=== PATIENT | male | born 1955 | race Caucasian/White ===

== ENCOUNTER → 2019-07-22 | Outpatient (CLI) | payer OTHER, BC ==
--- NOTE | ~2019-07-22 | HC ---
[facility] [place] [address] CONSULTATION Name: KARMEN TRIPATHI [id number] Admission: 07/22/19 ������������������ Attend Phys: Tanner Reed MD Discharge: ������������������ Date of : 57 Report #: [id number] THIS REPORT FOR: //name// CC: Sergio Reed DATE OF SERVICE: 07/22/2019 OUTPATIENT FOLLOWUP CONSULTATION INFECTIOUS DISEASE HISTORY OF PRESENT ILLNESS: He was seen in the Wound in the Wound Care [facility]. 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 He remains on Zosyn now day 32. He denies any fever, chills or sweats. He has a wound VAC dressing program with moderate drainage. His colostomy is functioning well. His right upper extremity PICC is functioning well. He remains on his 3 drug immunosuppression for his renal transplantation. He has had no diarrhea. He remains on oral vancomycin prophylaxis due to his previous history of C. difficile colitis. PHYSICAL EXAMINATION: NEUROLOGIC: He was seen in the Wound Care Center.: He was alert and cooperative and pleasant, in no acute distress. Sacral wound had good granulation at the base. There was no exposed bone. There was no purulent drainage. There is no surrounding erythema. Right greater trochanteric wound with as of yet no good granulation tissue formation. He has no surrounding erythema. He is paraplegic. CHEST: Clear. HEART: Regular. SKIN: PICC site without erythema or drainage. Colostomy was functional. 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 We will plan on continuing his current IV antibiotic therapy and enteral vancomycin. He will be reevaluated in 2 weeks in the outpatient clinic. He will contact me if any further issues arise prior to his scheduled followup. Plan was discussed with wound care team and the patient's family. ��������������������������������������������� ���������������������������������������� By: ��������������������������������������������� [id number] Jevon Krause MD /nt
== END ==
LOC: HYPER 07-14 11:22
DX: L89.154 Pressure ulcer of sacral region, stage 4 (principal); L89.214 Pressure ulcer of right hip, stage 4; I12.9 Hypertensive chronic kidney disease with stage 1 through stage 4 chronic kidney disease, or unspecified chronic kidney disease; N18.3 Chronic kidney disease, stage 3 (moderate); D89.9 Disorder involving the immune mechanism, unspecified; G82.20 Paraplegia, unspecified; A49.8 Other bacterial infections of unspecified site; Z94.0 Kidney transplant status; Z86.19 Personal history of other infectious and parasitic diseases; Z93.3 Colostomy status

== ENCOUNTER → 2019-08-19 | Outpatient (CLI) | payer OTHER, BC ==
--- NOTE | 2019-09-09 19:00 | HC ---
[facility] [place] [address] CONSULTATION Name: KARMEN TRIPATHI [facility] [id number] Admission: 08/19/19 Attend Phys: Tanner Reed MD Discharge: Date of : 57 Report #: [id number] THIS REPORT FOR: //name// CC: Sergio Reed DATE OF SERVICE: 08/19/2019 HISTORY OF PRESENT ILLNESS: The patient was evaluated in the Wound Care Clinic at the request of Dr. Tanner Reed. 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 He remains on Zosyn without side effect. He is also on oral vancomycin for history of C. difficile colitis. He is on 3-drug immunosuppression for his renal transplantation. He has right upper extremity PICC, which is functioning well. He has had no onset of diarrhea. He has had no fever, chills or sweats. Overall, feels well. PHYSICAL EXAMINATION: GENERAL: His sacral wound is closing in nicely. Still has a fairly large right greater trochanter wound. No definite exposed bone evident. He was paraplegic. CHEST: Clear. HEART: Regular. ABDOMEN: Soft. SKIN: PICC site without erythema or drainage. Colostomy was functional. LABORATORY STUDIES: Pending. 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 He has exposed bone from his previous debridements. 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 He has shown evidence of improvement on his current treatment program. He remains on 3-drug immunosuppression. Plan will be to obtain laboratory studies if stable. RECOMMENDATIONS: We will then discontinue his IV antibiotic therapy and plan on enteral therapy with ciprofloxacin longer term. There is a potential interaction with his immunosuppression. We will have to notify renal transplant service regarding the addition of this drug. We will discuss further with the patient once prescription has been filled. Follow up in 2 weeks. <ELECTRONICALLY SIGNED> By: Jevon Krause MD 09/09/19 [id number] Jevon Krause MD /nt
== END ==
LOC: HYPER 10:00
DX: L89.154 Pressure ulcer of sacral region, stage 4 (principal); L89.214 Pressure ulcer of right hip, stage 4; D89.9 Disorder involving the immune mechanism, unspecified; I12.9 Hypertensive chronic kidney disease with stage 1 through stage 4 chronic kidney disease, or unspecified chronic kidney disease; N18.3 Chronic kidney disease, stage 3 (moderate); G82.20 Paraplegia, unspecified; Z86.19 Personal history of other infectious and parasitic diseases; Z94.0 Kidney transplant status; Z93.3 Colostomy status

== ENCOUNTER → 2019-09-14 | Outpatient (CLI) | payer OTHER, BC | LOC: HYPER 07:30 | DX: L89.154 Pressure ulcer of sacral region, stage 4 (principal); L89.214 Pressure ulcer of right hip, stage 4; D89.9 Disorder involving the immune mechanism, unspecified; N18.3 Chronic kidney disease, stage 3 (moderate); G82.20 Paraplegia, unspecified; A49.8 Other bacterial infections of unspecified site; Z94.0 Kidney transplant status; Z86.19 Personal history of other infectious and parasitic diseases; Z93.3 Colostomy status ==

== ENCOUNTER → 2019-10-21 | Outpatient (CLI) | payer OTHER, BC | LOC: HYPER 10:05 | DX: L89.154 Pressure ulcer of sacral region, stage 4 (principal); L89.214 Pressure ulcer of right hip, stage 4; G82.20 Paraplegia, unspecified; I12.9 Hypertensive chronic kidney disease with stage 1 through stage 4 chronic kidney disease, or unspecified chronic kidney disease; N18.3 Chronic kidney disease, stage 3 (moderate); A49.8 Other bacterial infections of unspecified site; D89.9 Disorder involving the immune mechanism, unspecified; Z94.0 Kidney transplant status; Z86.19 Personal history of other infectious and parasitic diseases; Z93.3 Colostomy status ==

== ENCOUNTER → 2019-11-18 | Outpatient (CLI) | payer OTHER, BC | LOC: HYPER 10:21 | DX: L89.154 Pressure ulcer of sacral region, stage 4 (principal); L89.214 Pressure ulcer of right hip, stage 4; B96.89 Other specified bacterial agents as the cause of diseases classified elsewhere; D89.9 Disorder involving the immune mechanism, unspecified; I12.9 Hypertensive chronic kidney disease with stage 1 through stage 4 chronic kidney disease, or unspecified chronic kidney disease; N18.3 Chronic kidney disease, stage 3 (moderate); G83.9 Paralytic syndrome, unspecified; Z94.0 Kidney transplant status; Z93.3 Colostomy status ==

== ENCOUNTER → 2019-12-16 | Outpatient (CLI) | payer OTHER, BC | LOC: HYPER 09:48 | DX: L89.154 Pressure ulcer of sacral region, stage 4 (principal); L89.214 Pressure ulcer of right hip, stage 4; G82.20 Paraplegia, unspecified; B96.89 Other specified bacterial agents as the cause of diseases classified elsewhere; D89.9 Disorder involving the immune mechanism, unspecified; N18.3 Chronic kidney disease, stage 3 (moderate); Z94.0 Kidney transplant status; Z86.19 Personal history of other infectious and parasitic diseases; Z93.3 Colostomy status ==

== ENCOUNTER → 2020-01-13 | Outpatient (CLI) | payer OTHER, BC | LOC: HYPER 09:58 | DX: L89.154 Pressure ulcer of sacral region, stage 4 (principal); L89.214 Pressure ulcer of right hip, stage 4; G82.20 Paraplegia, unspecified; B96.89 Other specified bacterial agents as the cause of diseases classified elsewhere; D89.9 Disorder involving the immune mechanism, unspecified; I12.9 Hypertensive chronic kidney disease with stage 1 through stage 4 chronic kidney disease, or unspecified chronic kidney disease; N18.3 Chronic kidney disease, stage 3 (moderate); Z94.0 Kidney transplant status; Z86.19 Personal history of other infectious and parasitic diseases; Z93.3 Colostomy status ==

== ENCOUNTER → 2020-02-24 | Outpatient (CLI) | payer OTHER, BC | LOC: HYPER 10:30 | DX: L89.154 Pressure ulcer of sacral region, stage 4 (principal); L89.214 Pressure ulcer of right hip, stage 4; L84 Corns and callosities; A49.8 Other bacterial infections of unspecified site; G82.20 Paraplegia, unspecified; D89.9 Disorder involving the immune mechanism, unspecified; I12.9 Hypertensive chronic kidney disease with stage 1 through stage 4 chronic kidney disease, or unspecified chronic kidney disease; N18.3 Chronic kidney disease, stage 3 (moderate); Z94.0 Kidney transplant status; Z86.19 Personal history of other infectious and parasitic diseases; Z93.3 Colostomy status ==

== ENCOUNTER → 2020-03-23 | Outpatient (CLI) | payer OTHER, BC | LOC: HYPER 09:09 | DX: L89.154 Pressure ulcer of sacral region, stage 4 (principal); L89.214 Pressure ulcer of right hip, stage 4; L84 Corns and callosities; G82.20 Paraplegia, unspecified; A49.8 Other bacterial infections of unspecified site; D89.9 Disorder involving the immune mechanism, unspecified; I12.9 Hypertensive chronic kidney disease with stage 1 through stage 4 chronic kidney disease, or unspecified chronic kidney disease; N18.3 Chronic kidney disease, stage 3 (moderate); Z94.0 Kidney transplant status; Z86.19 Personal history of other infectious and parasitic diseases; Z93.3 Colostomy status ==

== ENCOUNTER → 2020-04-12 | Outpatient (CLI) | payer OTHER, BC | LOC: HYPER 11:58 | DX: L89.154 Pressure ulcer of sacral region, stage 4 (principal); L89.214 Pressure ulcer of right hip, stage 4; G82.20 Paraplegia, unspecified; I12.9 Hypertensive chronic kidney disease with stage 1 through stage 4 chronic kidney disease, or unspecified chronic kidney disease; N18.3 Chronic kidney disease, stage 3 (moderate); A49.8 Other bacterial infections of unspecified site; D89.9 Disorder involving the immune mechanism, unspecified; Z94.0 Kidney transplant status; Z86.19 Personal history of other infectious and parasitic diseases; Z93.3 Colostomy status ==

== ENCOUNTER → 2021-04-25 | Outpatient (CLI) | payer OTHER, BC | LOC: HYPER 08:09 | PROVIDERS: ATTEND Emergency Medicine | DX: T81.89XA Other complications of procedures, not elsewhere classified, initial encounter (principal); G82.20 Paraplegia, unspecified; I12.9 Hypertensive chronic kidney disease with stage 1 through stage 4 chronic kidney disease, or unspecified chronic kidney disease; N18.30 Chronic kidney disease, stage 3 unspecified; A49.8 Other bacterial infections of unspecified site; D89.9 Disorder involving the immune mechanism, unspecified; Z94.0 Kidney transplant status; Z86.19 Personal history of other infectious and parasitic diseases; Z93.3 Colostomy status; Z99.2 Dependence on renal dialysis; Z79.82 Long term (current) use of aspirin; Z79.899 Other long term (current) drug therapy; Y92.238 Other place in hospital as the place of occurrence of the external cause; Y83.8 Other surgical procedures as the cause of abnormal reaction of the patient, or of later complication, without mention of misadventure at the time of the procedure ==

== ENCOUNTER → 2021-05-02 | Outpatient (CLI) | payer OTHER, BC | LOC: HYPER 07:43 | PROVIDERS: ATTEND Emergency Medicine | DX: T81.89XD Other complications of procedures, not elsewhere classified, subsequent encounter (principal); G82.20 Paraplegia, unspecified; I12.9 Hypertensive chronic kidney disease with stage 1 through stage 4 chronic kidney disease, or unspecified chronic kidney disease; N18.30 Chronic kidney disease, stage 3 unspecified; A49.8 Other bacterial infections of unspecified site; D89.9 Disorder involving the immune mechanism, unspecified; Z94.0 Kidney transplant status; Z86.19 Personal history of other infectious and parasitic diseases; Z93.3 Colostomy status; Z99.2 Dependence on renal dialysis; Z79.82 Long term (current) use of aspirin; Y83.8 Other surgical procedures as the cause of abnormal reaction of the patient, or of later complication, without mention of misadventure at the time of the procedure ==

== ENCOUNTER → 2021-05-28 | Outpatient (CLI) | payer OTHER, BC | LOC: HYPER 09:37 | PROVIDERS: ATTEND Emergency Medicine | DX: T81.89XD Other complications of procedures, not elsewhere classified, subsequent encounter (principal); G82.20 Paraplegia, unspecified; B96.89 Other specified bacterial agents as the cause of diseases classified elsewhere; D89.9 Disorder involving the immune mechanism, unspecified; I12.9 Hypertensive chronic kidney disease with stage 1 through stage 4 chronic kidney disease, or unspecified chronic kidney disease; N18.30 Chronic kidney disease, stage 3 unspecified; Z86.19 Personal history of other infectious and parasitic diseases; Z99.2 Dependence on renal dialysis; Z94.0 Kidney transplant status; Z93.3 Colostomy status; Z90.5 Acquired absence of kidney; Z98.890 Other specified postprocedural states; Z79.82 Long term (current) use of aspirin; Z79.899 Other long term (current) drug therapy; Y83.8 Other surgical procedures as the cause of abnormal reaction of the patient, or of later complication, without mention of misadventure at the time of the procedure ==

== ENCOUNTER → 2021-06-14 | Outpatient (CLI) | payer OTHER, BC | LOC: HYPER 08:03 | PROVIDERS: ATTEND Emergency Medicine | DX: T81.89XD Other complications of procedures, not elsewhere classified, subsequent encounter (principal); G82.20 Paraplegia, unspecified; B96.89 Other specified bacterial agents as the cause of diseases classified elsewhere; I12.9 Hypertensive chronic kidney disease with stage 1 through stage 4 chronic kidney disease, or unspecified chronic kidney disease; N18.30 Chronic kidney disease, stage 3 unspecified; D89.9 Disorder involving the immune mechanism, unspecified; Z94.0 Kidney transplant status; Z99.2 Dependence on renal dialysis; Z93.3 Colostomy status; Z86.19 Personal history of other infectious and parasitic diseases; Z90.5 Acquired absence of kidney; Z79.899 Other long term (current) drug therapy; Y83.8 Other surgical procedures as the cause of abnormal reaction of the patient, or of later complication, without mention of misadventure at the time of the procedure ==

== ENCOUNTER → 2021-10-11 | Outpatient (CLI) | payer OTHER, BC | LOC: HYPER 11:00 | PROVIDERS: ATTEND Emergency Medicine | DX: T81.31XD Disruption of external operation (surgical) wound, not elsewhere classified, subsequent encounter (principal); L89.613 Pressure ulcer of right heel, stage 3; L89.893 Pressure ulcer of other site, stage 3; L84 Corns and callosities; G82.20 Paraplegia, unspecified; B96.89 Other specified bacterial agents as the cause of diseases classified elsewhere; I12.9 Hypertensive chronic kidney disease with stage 1 through stage 4 chronic kidney disease, or unspecified chronic kidney disease; N18.30 Chronic kidney disease, stage 3 unspecified; D89.9 Disorder involving the immune mechanism, unspecified; Z94.0 Kidney transplant status; Z99.2 Dependence on renal dialysis; Z93.3 Colostomy status; Z86.19 Personal history of other infectious and parasitic diseases; Z90.5 Acquired absence of kidney; Z79.82 Long term (current) use of aspirin; Y83.8 Other surgical procedures as the cause of abnormal reaction of the patient, or of later complication, without mention of misadventure at the time of the procedure ==

== ENCOUNTER → 2021-10-18 | Outpatient (CLI) | payer OTHER, BC | LOC: SJCVCIMAG 15:25 | PROVIDERS: ATTEND Emergency Medicine | DX: I70.293 Other atherosclerosis of native arteries of extremities, bilateral legs (principal) ==

== ENCOUNTER → 2021-10-18 | Outpatient (CLI) | payer OTHER, BC | LOC: HYPER 09:42 | PROVIDERS: ATTEND Emergency Medicine | DX: T81.31XD Disruption of external operation (surgical) wound, not elsewhere classified, subsequent encounter (principal); L89.613 Pressure ulcer of right heel, stage 3; L89.893 Pressure ulcer of other site, stage 3; G82.20 Paraplegia, unspecified; D89.9 Disorder involving the immune mechanism, unspecified; I12.9 Hypertensive chronic kidney disease with stage 1 through stage 4 chronic kidney disease, or unspecified chronic kidney disease; N18.30 Chronic kidney disease, stage 3 unspecified; Z94.0 Kidney transplant status; Z79.82 Long term (current) use of aspirin; Z79.899 Other long term (current) drug therapy; Z93.3 Colostomy status; Z99.2 Dependence on renal dialysis; Z90.5 Acquired absence of kidney; Y83.8 Other surgical procedures as the cause of abnormal reaction of the patient, or of later complication, without mention of misadventure at the time of the procedure ==

== ENCOUNTER → 2021-10-25 | Outpatient (CLI) | payer OTHER, BC | LOC: HYPER 08:09 | PROVIDERS: ATTEND Emergency Medicine | DX: L89.613 Pressure ulcer of right heel, stage 3 (principal); L89.893 Pressure ulcer of other site, stage 3; L89.890 Pressure ulcer of other site, unstageable; G82.20 Paraplegia, unspecified; D89.9 Disorder involving the immune mechanism, unspecified; I12.9 Hypertensive chronic kidney disease with stage 1 through stage 4 chronic kidney disease, or unspecified chronic kidney disease; N18.30 Chronic kidney disease, stage 3 unspecified; Z79.82 Long term (current) use of aspirin; Z86.19 Personal history of other infectious and parasitic diseases; Z99.2 Dependence on renal dialysis; Z79.899 Other long term (current) drug therapy; Z94.0 Kidney transplant status; Z93.3 Colostomy status; Z90.5 Acquired absence of kidney ==

== ENCOUNTER → 2021-10-29 | Outpatient (CLI) | payer OTHER, BC | LOC: HYPER 10:39 | PROVIDERS: ATTEND Emergency Medicine Emergency Medical Services | DX: T81.31XD Disruption of external operation (surgical) wound, not elsewhere classified, subsequent encounter (principal); L89.613 Pressure ulcer of right heel, stage 3; L89.893 Pressure ulcer of other site, stage 3; G82.20 Paraplegia, unspecified; D89.9 Disorder involving the immune mechanism, unspecified; L84 Corns and callosities; I12.9 Hypertensive chronic kidney disease with stage 1 through stage 4 chronic kidney disease, or unspecified chronic kidney disease; N18.30 Chronic kidney disease, stage 3 unspecified; F32.9 Major depressive disorder, single episode, unspecified; Z86.19 Personal history of other infectious and parasitic diseases; Z93.3 Colostomy status; Z99.2 Dependence on renal dialysis; Z94.0 Kidney transplant status; Z90.5 Acquired absence of kidney; Z79.899 Other long term (current) drug therapy; Y83.8 Other surgical procedures as the cause of abnormal reaction of the patient, or of later complication, without mention of misadventure at the time of the procedure ==

== ENCOUNTER → 2021-11-08 | Outpatient (CLI) | payer OTHER, BC | LOC: HYPER 13:21 | PROVIDERS: ATTEND Emergency Medicine | DX: T81.31XD Disruption of external operation (surgical) wound, not elsewhere classified, subsequent encounter (principal); L89.613 Pressure ulcer of right heel, stage 3; L89.893 Pressure ulcer of other site, stage 3; L02.415 Cutaneous abscess of right lower limb; G82.20 Paraplegia, unspecified; D89.9 Disorder involving the immune mechanism, unspecified; L84 Corns and callosities; I12.9 Hypertensive chronic kidney disease with stage 1 through stage 4 chronic kidney disease, or unspecified chronic kidney disease; N18.30 Chronic kidney disease, stage 3 unspecified; F32.9 Major depressive disorder, single episode, unspecified; Z86.19 Personal history of other infectious and parasitic diseases; Z93.3 Colostomy status; Z99.2 Dependence on renal dialysis; Z94.0 Kidney transplant status; Z90.5 Acquired absence of kidney; Y83.8 Other surgical procedures as the cause of abnormal reaction of the patient, or of later complication, without mention of misadventure at the time of the procedure ==

== ENCOUNTER → 2021-11-13 | Outpatient (CLI) | payer OTHER, BC | END | disposition home or self-care (01) | LOC: CAT 11:37 → MRI 14:00 → CAT 14:00 | PROVIDERS: ATTEND Emergency Medicine | DX: S71.001A Unspecified open wound, right hip, initial encounter (principal); X58.XXXA Exposure to other specified factors, initial encounter; Y93.89 Activity, other specified; Y92.89 Other specified places as the place of occurrence of the external cause; Y99.8 Other external cause status ==

== ENCOUNTER → 2021-11-15 | Outpatient (CLI) | payer OTHER, BC | LOC: HYPER 14:01 | PROVIDERS: ATTEND Emergency Medicine | DX: T81.31XD Disruption of external operation (surgical) wound, not elsewhere classified, subsequent encounter (principal); L89.613 Pressure ulcer of right heel, stage 3; L89.893 Pressure ulcer of other site, stage 3; L02.415 Cutaneous abscess of right lower limb; G82.20 Paraplegia, unspecified; D89.9 Disorder involving the immune mechanism, unspecified; L84 Corns and callosities; I12.9 Hypertensive chronic kidney disease with stage 1 through stage 4 chronic kidney disease, or unspecified chronic kidney disease; N18.30 Chronic kidney disease, stage 3 unspecified; F32.9 Major depressive disorder, single episode, unspecified; Z86.19 Personal history of other infectious and parasitic diseases; Z93.3 Colostomy status; Z99.2 Dependence on renal dialysis; Z94.0 Kidney transplant status; Z90.5 Acquired absence of kidney; Y83.8 Other surgical procedures as the cause of abnormal reaction of the patient, or of later complication, without mention of misadventure at the time of the procedure ==

== ENCOUNTER → 2021-11-29 | Outpatient (CLI) | payer OTHER, BC | LOC: HYPER 08:42 | PROVIDERS: ATTEND Emergency Medicine | DX: T81.31XD Disruption of external operation (surgical) wound, not elsewhere classified, subsequent encounter (principal); L89.613 Pressure ulcer of right heel, stage 3; L89.893 Pressure ulcer of other site, stage 3; L02.415 Cutaneous abscess of right lower limb; L84 Corns and callosities; G82.20 Paraplegia, unspecified; D89.9 Disorder involving the immune mechanism, unspecified; I12.9 Hypertensive chronic kidney disease with stage 1 through stage 4 chronic kidney disease, or unspecified chronic kidney disease; N18.30 Chronic kidney disease, stage 3 unspecified; F32.9 Major depressive disorder, single episode, unspecified; Z86.19 Personal history of other infectious and parasitic diseases; Z93.3 Colostomy status; Z99.2 Dependence on renal dialysis; Z94.0 Kidney transplant status; Z90.5 Acquired absence of kidney; Y83.8 Other surgical procedures as the cause of abnormal reaction of the patient, or of later complication, without mention of misadventure at the time of the procedure ==

== ENCOUNTER → 2021-12-17 | Outpatient (CLI) | payer OTHER, BC | LOC: HYPER 14:17 | PROVIDERS: ATTEND Emergency Medicine | DX: T81.31XD Disruption of external operation (surgical) wound, not elsewhere classified, subsequent encounter (principal); L89.613 Pressure ulcer of right heel, stage 3; L89.893 Pressure ulcer of other site, stage 3; L02.415 Cutaneous abscess of right lower limb; G82.20 Paraplegia, unspecified; D89.9 Disorder involving the immune mechanism, unspecified; I12.9 Hypertensive chronic kidney disease with stage 1 through stage 4 chronic kidney disease, or unspecified chronic kidney disease; N18.30 Chronic kidney disease, stage 3 unspecified; Z86.19 Personal history of other infectious and parasitic diseases; Z79.82 Long term (current) use of aspirin; Z79.899 Other long term (current) drug therapy; Z94.0 Kidney transplant status; Z99.2 Dependence on renal dialysis; Z93.3 Colostomy status; Z90.5 Acquired absence of kidney; Y83.8 Other surgical procedures as the cause of abnormal reaction of the patient, or of later complication, without mention of misadventure at the time of the procedure ==

== ENCOUNTER → 2022-01-04 | Outpatient (CLI) | payer OTHER, BC ==
[~2022-01-04] VITALS: Ht 185.4 cm; Wt 88.0 kg
[~2022-01-04] MED LIST: ACIDOPHILUS PR1 EAC1 PO; ALLEGRA ALLERG180 MG PO; CALCITRIOL0.5 MCG PO; COLACE100 MG PO; DESYREL150 MG PO; LIPITOR80 MG PO; LIQUACEL PO; NEURONTIN300 MG PO; OXYBUTYNIN 5 MG5 M2 PO; PHOSLO667 MG PO; PLAVIX 75 MG TA75 MG PO; PROTONIX40 M2 PO; RENAPLEX-D TAB1 EACH PO; SENNA8.8 MG/5 M PO; VALIUM10 MG PO; VAZALORE81 MG PO
[2022-01-04 07:45] VITALS: BP 166/74
[2022-01-04 08:25] LABS: HEMATOCRIT 37.7 % (42.0-52.0); HEMOGLOBIN 12.1 gm/dL (14.0-18.0); MCH 26.9 pg (26.0-34.0); MCHC 32.2 g/dL (28.0-37.0); MCV 83.7 fL (80.0-100.0); RBC 4.51 mil/uL (4.50-6.00); RDW 20.2 % (10.5-14.5); WBC 9.8 thou/uL (4.0-11.0)
[2022-01-04 08:35] LABS: CALCIUM 11.7 mg/dL (8.5-10.1); CREATININE 6.9 mg/dL (0.7-1.3)
== END | disposition home or self-care (01) ==
LOC: CATH 06:32
PROVIDERS: ATTEND Nuclear Medicine Nuclear Cardiology
DX: I70.238 Atherosclerosis of native arteries of right leg with ulceration of other part of lower leg (principal); L97.919 Non-pressure chronic ulcer of unspecified part of right lower leg with unspecified severity; I70.213 Atherosclerosis of native arteries of extremities with intermittent claudication, bilateral legs; M79.604 Pain in right leg; I70.1 Atherosclerosis of renal artery; I10 Essential (primary) hypertension; I25.10 Atherosclerotic heart disease of native coronary artery without angina pectoris; K21.9 Gastro-esophageal reflux disease without esophagitis; Z98.890 Other specified postprocedural states; Z79.899 Other long term (current) drug therapy; Z79.82 Long term (current) use of aspirin; Z88.8 Allergy status to other drugs, medicaments and biological substances